=== PATIENT | female | born 1990 | race Caucasian/White ===

== ENCOUNTER 2017-03-20 09:02 | Emergency (ER) | payer MEDICAID ==
--- NOTE | 2017-03-20 09:19 | Emergency Department Record ---
History of Present Illness - General Chief complaint: complication Stated complaint: 25 WKS PG, LEAKING FLUID Time Seen by Provider: 03/20/17 09:07 Source: Patient, Family Mode of Arrival: Ambulatory Limitations: No limitations Travel/Exposure to [place] Within 21 Days of Symptoms: No - History of Present Illness Initial comments: 26 yo presents with leakage of clear fluid for 2 days intermittently from the vagina. NO bleeding. No contractions but occasionally feels a pressure. She is feeling the baby movement. No fevers of chills. No pain at this time. No fluid at this time. -: Days(s) (2) Location: Pelvis Radiation: None Severity: Mild Quality: Other (pressure) Consistency: Intermittent Improves with: None Worsens with: None Associated symptoms: Denies other symptoms Vaginal bleeding: None No complications No complications - Related Data : 3 Para: 2 Home Medications Medication Instructions Recorded Confirmed Last Taken Omeprazole [Prilosec] 20 mg PO DAILY 03/20/17 03/20/17 1 Day Ago ~03/19/17 Vit 90/Iron Fum/Folic 1 each PO DAILY 03/20/17 03/20/17 1 Day Ago [ Formula Tablet] ~03/19/17 Allergies Allergy/AdvReac Type Severity Reaction Status Date / Time No Known Drug Allergies Allergy Verified 03/20/17 09:15 Review of Systems Constitutional: Denies: Chills, Fever, Malaise, Weakness Eyes: Denies: Eye discharge ENT: Denies: Congestion, Throat pain Respiratory: Denies: Cough Cardiovascular: Denies: Chest pain, Palpitations, Syncope Endocrine: Denies: Fatigue Gastrointestinal: Denies: Abdominal pain, Diarrhea, Nausea, Vomiting Genitourinary: Reports: Abnormal menses, Discharge (clear fluid). Denies: Dysuria, Frequency, Urgency Musculoskeletal: Denies: Arthralgia, Back pain, Neck pain Skin: Denies: Bruising, Change in color, Rash Neurological: Denies: Confusion, Headache Psychiatric: Denies: Anxiety Hematological/Lymphatic: Denies: Easy bleeding, Easy bruising, Swollen glands Physical Exam - General General Appearance: Alert, Oriented x3, Cooperative, No acute distress Limitations: No limitations - Head Head exam: Normal inspection - Eye Eye exam: Normal appearance. negative: Conjunctival injection - ENT ENT exam: Normal exam Ear exam: Normal external inspection Nasal Exam: Normal inspection Mouth exam: Normal external inspection Teeth exam: Normal inspection Throat exam: Normal inspection - Neck Neck exam: Normal inspection - Respiratory Respiratory exam: Normal lung sounds bilaterally. negative: Respiratory distress - Cardiovascular Cardiovascular Exam: Regular rate, Normal rhythm, Normal heart sounds - GI/Abdominal GI/Abdominal exam: Soft. negative: Tenderness - Rectal Rectal exam: Deferred - exam: Deferred - Extremities Extremities exam: Normal inspection, Full ROM, Normal capillary refill. negative: Tenderness - Back Back exam: Reports: Normal inspection, Full ROM. Denies: Muscle spasm, Rash noted, Tenderness - Neurological Neurological exam: Alert, Normal gait, Oriented X3, Reflexes normal - Psychiatric Psychiatric exam: Normal affect, Normal mood - Skin Skin exam: Dry, Intact, Normal color, Warm Course - Reevaluation(s) Reevaluation #1: Bedside US performed Single baby very active HR about 140 amniotic fluid noted 03/20/17 09:19 Reevaluation #2: The patient's OB paged 03/20/17 09:20 Reevaluation #3: The patient is relaxed, no contractions, no pain, no tenderness No signs of labor or eminent delivery She is stable to go by private car 03/20/17 09:21 Reevaluation #4: I SW OB at [facility] Dr Saldana agrees with accepting for evaluation to OB triage at [facility] 03/20/17 09:26 Disposition Disposition: Transfer Clinical Impression: Threatened miscarriage Disposition: Acute Care Hospital Transfer Transfer To: [facility] Reason For Transfer: possible leakage of amniotic fluid Accepting Physician: Les Time Discussed w/Accepting Physician: 09:27 Condition: (2) Stable Instructions: (ED), Threatened Miscarriage (ED) Additional Instructions: Go directly to OB triage at [facility] for evaluation Forms: Patient Portal Access Time of Disposition: 09:21
== END 2017-03-20 09:46 | disposition short-term general hospital (02) ==
LOC: ER 09:02
DX: O20.0 Threatened abortion (principal); Z3A.25 25 weeks gestation of pregnancy
CPT/HCPCS: 99285